=== PATIENT | female | born 1980 | race Caucasian/White ===

== ENCOUNTER 2016-07-20 20:13 | Emergency (ER) | payer OTHER ==
[2016-07-20] MEDS ORDERED: AUGMENTIN 875 MG TAB As Ordered ONE (21:28)
[2016-07-20] MEDS ORDERED: predniSONE 20 MG TAB As Ordered ONE (21:28)
[2016-07-20] MEDS ORDERED: IBUPROFEN 800 MG TAB As Ordered ONE (21:29)
--- NOTE | 2016-07-20 21:45 | EDDOCDS ---
Physician Documentation [facility] Name: Sara Allan Age: 35 yrs Sex: Female : 1980 Arrival Date: 07/20/2016 Time: 20:13 Bed TR7 Private MD: NO PRIMARY PHYSICIAN, . Disposition: 07/20/16 21:36 Discharged to Home/Self Care. Impression: Acute sinusitis, Acute tonsillitis, Cough. - Condition is Stable. - Discharge Instructions: Tonsillitis, Yady-ha-Vqim, Sinusitis, Jwgc-ft-Iqmi, Cough, Adult, Tntj-yn-Mnpm. - Prescriptions for Augmentin 875- 125 mg Oral Tablet - take 1 tablet by ORAL route every 12 hours for 10 days; 20 tablet. Prednisone 20 mg Oral Tablet - take 3 tablet by ORAL route once daily for 5 days; 15 tablet. Claritin 10 mg Oral Tablet - take 1 tablet by ORAL route once daily As needed; 30 tablet. Mucinex 600 mg - take 1 tablet by ORAL route 2 times per day; 30 tablet. Ibuprofen 800 mg Oral Tablet - take 1 tablet by ORAL route every 8 hours As needed take with food; 30 tablet. - Work Release Form - 3 day, Medication Reconciliation, Local Pharmacy Hours, Referral List Call for Appointment form. - [facility] ; When: 1 - 2 days; Reason: Recheck today's complaints, Continuance of care. Follow up: Emergency Department; Reason: Worsening of conditions. - Problem is new. - Symptoms have improved. Historical: - Allergies: no known allergies; - Home Meds: 1. cold and flu medication OTC as needed (Last dose: 07/20/2016 15:00) - PMHx: none; - PSHx: Cholecystectomy; hernia repair; - Social history: Smoking status: Patient uses tobacco products, heavy tobacco smoker. Patient/guardian denies using alcohol, street drugs, No barriers to communication noted, The patient speaks fluent Malay, Speaks appropriately for age. - Family history: Not pertinent. - : The pt / caregiver states he / she is not on anticoagulants. Home medication list is obtained from the patient. - Exposure Risk Screening:: None identified. 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 11 in. (180.34 cm); Pain 6/10; 21:33 BP 139 / 93; Pulse 98; Resp 18; Temp 98.7(O); Pulse Ox 98% on R/A; Pain 6/10; ck1 20:14 Body Mass Index 29.01 (94.35 kg, 180.34 cm) dem1 MDM: 21:26 Amoxicillin-Clavulanate 875 mg 1 tabs PO once ordered. ef1 21:27 predniSONE 60 mg PO once; administer with food or milk ordered. ef1 21:27 Ibuprofen 800 mg PO once ordered. ef1 Administered Medications: 21:31 Drug: Amoxicillin-Clavulanate 1 tabs [amoxicillin 875 mg-potassium clavulanate 125 mg ck1 tablet (1 tabs)] Route: PO; 21:31 Drug: predniSONE 60 mg [prednisone 20 mg tablet (3 tabs)] Route: PO; ck1 21:31 Drug: Ibuprofen 800 mg [ibuprofen 800 mg tablet (1 tabs)] Route: PO; ck1 Signatures: Anjelica Ambrosio,RN RN ck1 Faiza Betancur PA-C PA-C ef1 Bonny Retana RN RN ttb MTDD
--- NOTE | 2016-07-20 21:45 | EDDOCDS ---
Nurse's Notes [facility] Name: Sara Allan Age: 35 yrs Sex: Female : 1980 Arrival Date: 07/20/2016 Time: 20:13 Bed TR7 Private MD: NO PRIMARY PHYSICIAN, . Diagnosis: Acute sinusitis;Acute tonsillitis;Cough Presentation: 07/20 20:21 Presenting complaint: Patient states: chest congestions/nasal congestion x2 days. Adult ttb Sepsis Screening: The patient does not have new or worsening altered mentation. Patient's respiratory rate is less than 22. Systolic blood pressure is greater than 100. Patient has a qSOFA score of 0- Negative Sepsis Screen. Suicide/Homicide risk assessment- the patient denies having any suicidal and/or homicidal ideations and does not present with any other emotional, behavioral or mental health complaints. Status: Patient is not a guest service aide or dependent. Transition of care: patient was not received from another setting of care. 20:21 Acuity: ANTONI Level 5 ttb 20:21 Method Of Arrival: Walkin/Carried/Asstd ttb Triage Assessment: 20:22 General: Appears in no apparent distress, well nourished, well groomed, Behavior is ttb appropriate for age, cooperative, pleasant. Pain: Location: throat. HIV screening NA for this visit Offered previously. Neurological: Level of Consciousness is awake, alert. EENT: Reports nasal congestion nasal discharge. Cardiovascular: Chest pain is denied. Respiratory: Airway is patent Respiratory effort is even, unlabored, Reports cough that is productive, the patient has mild shortness of breath Denies shortness of breath. GI: Denies nausea, vomiting. :. Derm: Skin is normal. 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 cold and flu medication OTC as needed (Last dose: 07/20/2016 15:00) - PMHx: none; - PSHx: Cholecystectomy; hernia repair; - Social history: Smoking status: Patient uses tobacco products, heavy tobacco smoker. Patient/guardian denies using alcohol, street drugs, No barriers to communication noted, The patient speaks fluent Hungarian, Speaks appropriately for age. - Family history: Not pertinent. - : The pt / caregiver states he / she is not on anticoagulants. Home medication list is obtained from the patient. - Exposure Risk Screening:: None identified. Screenin:31 Screening information is obtained from the patient. Fall risk: No risks identified. ck1 Assistance ADL's: requires no assistance with activities of daily living. Abuse/DV Screen: The patient / caregiver reports he/she is: not in a situation that causes fear, pain or injury. Nutritional screening: No deficits noted. Advance Directives: Currently, there is no health care proxy. home support is adequate. Assessment: 21:31 General: Appears in no apparent distress, comfortable, Behavior is appropriate for age, ck1 cooperative. Pain: Location: chest Pain At worst was 6 out of 10 on a pain scale. Aggravated by cough. Cardiovascular: No deficits noted. Respiratory: Respiratory effort is unlabored, Respiratory pattern is regular, symmetrical, Breath sounds are clear bilaterally. Reports cough that is productive. Derm: Skin is pink, warm & dry. Vital Signs: 20:14 BP 142 / 72; Pulse 114; Resp 18; Temp 96.9(O); Pulse Ox 98% on R/A; Weight 94.35 kg [facility] (R); Height 5 ft. 11 in. (180.34 cm); Pain 6/10; 21:33 BP 139 / 93; Pulse 98; Resp 18; Temp 98.7(O); Pulse Ox 98% on R/A; Pain 6/10; ck1 20:14 Body Mass Index 29.01 (94.35 kg, 180.34 cm) [facility] Vitals: 20:14 Log In Time: July 20, 2016 at 20:10. [facility] ED Course: 20:14 Patient visited by Waqas Hernandez. dem1 20:14 NO PRIMARY PHYSICIAN, . is Private Physician. dem1 20:14 Patient moved to Waiting dem1 20:14 Patient moved to Pre RCE dem1 20:21 Triage Initiated ttb 20:52 Patient moved to Triage 2 jmb 21:00 Patient visited by Anjelica Ambrosio,YURI. ck1 21:14 Faiza Betancur PA-C is PHCP. ef1 21:14 Carlos Salazar DO is Attending Physician. ef1 21:18 Patient visited by Faiza Betancur PA-C. ef1 21:31 Patient visited by Rossy-Kavon,Anjelica,RN. ck1 21:31 No IV's were initiated during this patient's visit. No procedures done that require ck1 assistance. 21:32 The patient / caregiver is instructed regarding the plan of care and ED course. ck1 21:36 [facility] is Referral Physician. ef1 21:43 Patient moved to [address] Administered Medications: 21:31 Drug: Amoxicillin-Clavulanate 1 tabs [amoxicillin 875 mg-potassium clavulanate 125 mg ck1 tablet (1 tabs)] Route: PO; 21:31 Drug: predniSONE 60 mg [prednisone 20 mg tablet (3 tabs)] Route: PO; ck1 21:31 Drug: Ibuprofen 800 mg [ibuprofen 800 mg tablet (1 tabs)] Route: PO; ck1 Order Results: There are currently no results for this order. Outcome: 21:36 Discharge ordered by Provider. ef1 21:37 Discharge Assessment: Patient awake, alert and oriented x 3. No cognitive and/or ck1 functional deficits noted. Patient verbalized understanding of disposition instructions. patient administered narcotics - no. The following High Risk Discharge criteria are identified: None. Discharged to home ambulatory. Condition: stable. Discharge instructions given to patient, Instructed on discharge instructions, follow up and referral plans. medication usage, Demonstrated understanding of instructions, medications, Pt was receptive of discharge instructions/ teaching. No special radiology studies were completed. Property :Personal belongings accompany Pt. 21:44 Prescriptions given X 5 Work note provided to patient. ck1 21:44 Patient left the ED. ck1 Signatures: Anjelica Ambrosio,RN RN ck1 Faiza Betancur PA-C PA-C ef1 Waqas Hernandez [facility] Bonny Retana RN RN ttb Calixto Barker RN RN sarab MTDD
--- NOTE | 2016-07-22 22:46 | EDDOCDS ---
Nurse's Notes [facility] Name: Sara Allan Age: 35 yrs Sex: Female : 1980 Arrival Date: 07/20/2016 Time: 20:13 Bed TR7 Private MD: NO PRIMARY PHYSICIAN, . Diagnosis: Acute sinusitis;Acute tonsillitis;Cough Presentation: 07/20 20:21 Presenting complaint: Patient states: chest congestions/nasal congestion x2 days. Adult ttb Sepsis Screening: The patient does not have new or worsening altered mentation. Patient's respiratory rate is less than 22. Systolic blood pressure is greater than 100. Patient has a qSOFA score of 0- Negative Sepsis Screen. Suicide/Homicide risk assessment- the patient denies having any suicidal and/or homicidal ideations and does not present with any other emotional, behavioral or mental health complaints. 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 Transition of care: patient was not received from another setting of care. 20:21 Acuity: ANTONI Level 5 ttb 20:21 Method Of Arrival: Walkin/Carried/Asstd ttb Triage Assessment: 20:22 General: Appears in no apparent distress, well nourished, well groomed, Behavior is ttb appropriate for age, cooperative, pleasant. Pain: Location: throat. HIV screening NA for this visit Offered previously. Neurological: Level of Consciousness is awake, alert. EENT: Reports nasal congestion nasal discharge. Cardiovascular: Chest pain is denied. Respiratory: Airway is patent Respiratory effort is even, unlabored, Reports cough that is productive, the patient has mild shortness of breath Denies shortness of breath. GI: Denies nausea, vomiting. :. Derm: Skin is normal. 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 cold and flu medication OTC as needed (Last dose: 07/20/2016 15:00) - PMHx: none; - PSHx: Cholecystectomy; hernia repair; - Social history: Smoking status: Patient uses tobacco products, heavy tobacco smoker. Patient/guardian denies using alcohol, street drugs, No barriers to communication noted, The patient speaks fluent Tajik, Speaks appropriately for age. - Family history: Not pertinent. - : The pt / caregiver states he / she is not on anticoagulants. Home medication list is obtained from the patient. - Exposure Risk Screening:: None identified. Screenin:31 Screening information is obtained from the patient. Fall risk: No risks identified. ck1 Assistance ADL's: requires no assistance with activities of daily living. Abuse/DV Screen: The patient / caregiver reports he/she is: not in a situation that causes fear, pain or injury. Nutritional screening: No deficits noted. Advance Directives: Currently, there is no health care proxy. home support is adequate. Assessment: 21:31 General: Appears in no apparent distress, comfortable, Behavior is appropriate for age, ck1 cooperative. Pain: Location: chest Pain At worst was 6 out of 10 on a pain scale. Aggravated by cough. Cardiovascular: No deficits noted. Respiratory: Respiratory effort is unlabored, Respiratory pattern is regular, symmetrical, Breath sounds are clear bilaterally. Reports cough that is productive. Derm: Skin is pink, warm & dry. Vital Signs: 20:14 BP 142 / 72; Pulse 114; Resp 18; Temp 96.9(O); Pulse Ox 98% on R/A; Weight 94.35 kg [facility] (R); Height 5 ft. 11 in. (180.34 cm); Pain 6/10; 21:33 BP 139 / 93; Pulse 98; Resp 18; Temp 98.7(O); Pulse Ox 98% on R/A; Pain 6/10; ck1 20:14 Body Mass Index 29.01 (94.35 kg, 180.34 cm) [facility] Vitals: 20:14 Log In Time: July 20, 2016 at 20:10. [facility] ED Course: 20:14 Patient visited by Waqas Hernandez. dem1 20:14 NO PRIMARY PHYSICIAN, . is Private Physician. dem1 20:14 Patient moved to Waiting dem1 20:14 Patient moved to Pre RCE dem1 20:21 Triage Initiated ttb 20:52 Patient moved to Triage 2 jmb 21:00 Patient visited by Anjelica Ambrosio,YURI. ck1 21:14 Faiza Betancur PA-C is PHCP. ef1 21:14 Carlos Salazar DO is Attending Physician. ef1 21:18 Patient visited by Faiza Betancur PA-C. ef1 21:31 Patient visited by Rossy-Kavon,Anjelica,RN. ck1 21:31 No IV's were initiated during this patient's visit. No procedures done that require ck1 assistance. 21:32 The patient / caregiver is instructed regarding the plan of care and ED course. ck1 21:36 [facility] is Referral Physician. ef1 21:43 Patient moved to [address] 21:47 [facility] Payment Agreement was scanned into [employer] and attached to record. zo 07/21 08:04 T-Sheet-- Draft Copy was scanned into [employer] and attached to record. gb Administered Medications: 07/20 21:31 Drug: Amoxicillin-Clavulanate 1 tabs [amoxicillin 875 mg-potassium clavulanate 125 mg ck1 tablet (1 tabs)] Route: PO; 21:31 Drug: predniSONE 60 mg [prednisone 20 mg tablet (3 tabs)] Route: PO; ck1 21:31 Drug: Ibuprofen 800 mg [ibuprofen 800 mg tablet (1 tabs)] Route: PO; ck1 Order Results: There are currently no results for this order. Outcome: 21:36 Discharge ordered by Provider. ef1 21:37 Discharge Assessment: Patient awake, alert and oriented x 3. No cognitive and/or ck1 functional deficits noted. Patient verbalized understanding of disposition instructions. patient administered narcotics - no. The following High Risk Discharge criteria are identified: None. Discharged to home ambulatory. Condition: stable. Discharge instructions given to patient, Instructed on discharge instructions, follow up and referral plans. medication usage, Demonstrated understanding of instructions, medications, Pt was receptive of discharge instructions/ teaching. No special radiology studies were completed. Property :Personal belongings accompany Pt. 21:44 Prescriptions given X 5 Work note provided to patient. ck1 21:44 Patient left the ED. ck1 Signatures: Annette Graff, Reg Reg Anjelica Ambrosio,RN RN ck1 Kenyatta Hagen Erica PA-C PA-C ef1 Waqas Hernandez [facility] Bonny Retana, YURI RN ttb Calixto Barker RN RN jmb Chart Complete MTDD
--- NOTE | 2016-07-22 22:46 | EDDOCDS ---
Physician Documentation [facility] Name: Sara Allan Age: 35 yrs Sex: Female : 1980 Arrival Date: 07/20/2016 Time: 20:13 Bed TR7 Private MD: NO PRIMARY PHYSICIAN, . Disposition: 07/20/16 21:36 Discharged to Home/Self Care. Impression: Acute sinusitis, Acute tonsillitis, Cough. - Condition is Stable. - Discharge Instructions: Tonsillitis, Mqwv-xp-Rshv, Sinusitis, Dwfv-xk-Rswl, Cough, Adult, Fmqz-uv-Yefh. - Prescriptions for Augmentin 875- 125 mg Oral Tablet - take 1 tablet by ORAL route every 12 hours for 10 days; 20 tablet. Prednisone 20 mg Oral Tablet - take 3 tablet by ORAL route once daily for 5 days; 15 tablet. Claritin 10 mg Oral Tablet - take 1 tablet by ORAL route once daily As needed; 30 tablet. Mucinex 600 mg - take 1 tablet by ORAL route 2 times per day; 30 tablet. Ibuprofen 800 mg Oral Tablet - take 1 tablet by ORAL route every 8 hours As needed take with food; 30 tablet. - Work Release Form - 3 day, Medication Reconciliation, Local Pharmacy Hours, Referral List Call for Appointment form. - [facility] ; When: 1 - 2 days; Reason: Recheck today's complaints, Continuance of care. Follow up: Emergency Department; Reason: Worsening of conditions. - Problem is new. - Symptoms have improved. Historical: - Allergies: no known allergies; - Home Meds: 1. cold and flu medication OTC as needed (Last dose: 07/20/2016 15:00) - PMHx: none; - PSHx: Cholecystectomy; hernia repair; - Social history: Smoking status: Patient uses tobacco products, heavy tobacco smoker. Patient/guardian denies using alcohol, street drugs, No barriers to communication noted, The patient speaks fluent Faroese, Speaks appropriately for age. - Family history: Not pertinent. - : The pt / caregiver states he / she is not on anticoagulants. Home medication list is obtained from the patient. - Exposure Risk Screening:: None identified. 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 11 in. (180.34 cm); Pain 6/10; 21:33 BP 139 / 93; Pulse 98; Resp 18; Temp 98.7(O); Pulse Ox 98% on R/A; Pain 6/10; ck1 20:14 Body Mass Index 29.01 (94.35 kg, 180.34 cm) dem1 MDM: 21:26 Amoxicillin-Clavulanate 875 mg 1 tabs PO once ordered. ef1 21:27 predniSONE 60 mg PO once; administer with food or milk ordered. ef1 21:27 Ibuprofen 800 mg PO once ordered. ef1 21:47 Financial registration complete. zo 21:47 [facility] Payment Agreement was scanned into [employer] and attached to record. zo 07/21 08:04 T-Sheet-- Draft Copy was scanned into [employer] and attached to record. gb Administered Medications: 07/20 21:31 Drug: Amoxicillin-Clavulanate 1 tabs [amoxicillin 875 mg-potassium clavulanate 125 mg ck1 tablet (1 tabs)] Route: PO; 21:31 Drug: predniSONE 60 mg [prednisone 20 mg tablet (3 tabs)] Route: PO; ck1 21:31 Drug: Ibuprofen 800 mg [ibuprofen 800 mg tablet (1 tabs)] Route: PO; ck1 Signatures: Annette Graff, Reg Reg gb Anjelica Ambrosio RN RN ck1 Kenyatta Hagen Erica, PA-C PA-C ef1 Bonny Retana RN RN ttb The chart was reviewed and I authenticate all verbal orders and agree with the evaluation and treatment provided.Attachments: 21:47 [facility] Payment Agreement zo 07/21 08:04 T-Sheet-- Draft Copy gb Chart Complete MTDD
--- NOTE | 2016-07-22 22:46 | EDDOCDS ---
Physician Documentation [facility] Name: Sara Allan Age: 35 yrs Sex: Female : 1980 Arrival Date: 07/20/2016 Time: 20:13 Bed TR7 Private MD: NO PRIMARY PHYSICIAN, . Disposition: 07/20/16 21:36 Discharged to Home/Self Care. Impression: Acute sinusitis, Acute tonsillitis, Cough. - Condition is Stable. - Discharge Instructions: Tonsillitis, Lsve-hj-Pgqy, Sinusitis, Kjcq-hv-Vvos, Cough, Adult, Geug-no-Obzt. - Prescriptions for Augmentin 875- 125 mg Oral Tablet - take 1 tablet by ORAL route every 12 hours for 10 days; 20 tablet. Prednisone 20 mg Oral Tablet - take 3 tablet by ORAL route once daily for 5 days; 15 tablet. Claritin 10 mg Oral Tablet - take 1 tablet by ORAL route once daily As needed; 30 tablet. Mucinex 600 mg - take 1 tablet by ORAL route 2 times per day; 30 tablet. Ibuprofen 800 mg Oral Tablet - take 1 tablet by ORAL route every 8 hours As needed take with food; 30 tablet. - Work Release Form - 3 day, Medication Reconciliation, Local Pharmacy Hours, Referral List Call for Appointment form. - [facility] ; When: 1 - 2 days; Reason: Recheck today's complaints, Continuance of care. Follow up: Emergency Department; Reason: Worsening of conditions. - Problem is new. - Symptoms have improved. Historical: - Allergies: no known allergies; - Home Meds: 1. cold and flu medication OTC as needed (Last dose: 07/20/2016 15:00) - PMHx: none; - PSHx: Cholecystectomy; hernia repair; - Social history: Smoking status: Patient uses tobacco products, heavy tobacco smoker. Patient/guardian denies using alcohol, street drugs, No barriers to communication noted, The patient speaks fluent Nepali, Speaks appropriately for age. - Family history: Not pertinent. - : The pt / caregiver states he / she is not on anticoagulants. Home medication list is obtained from the patient. - Exposure Risk Screening:: None identified. 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 11 in. (180.34 cm); Pain 6/10; 21:33 BP 139 / 93; Pulse 98; Resp 18; Temp 98.7(O); Pulse Ox 98% on R/A; Pain 6/10; ck1 20:14 Body Mass Index 29.01 (94.35 kg, 180.34 cm) dem1 MDM: 21:26 Amoxicillin-Clavulanate 875 mg 1 tabs PO once ordered. ef1 21:27 predniSONE 60 mg PO once; administer with food or milk ordered. ef1 21:27 Ibuprofen 800 mg PO once ordered. ef1 21:47 Financial registration complete. zo 21:47 [facility] Payment Agreement was scanned into [employer] and attached to record. zo 07/21 08:04 T-Sheet-- Draft Copy was scanned into [employer] and attached to record. gb Administered Medications: 07/20 21:31 Drug: Amoxicillin-Clavulanate 1 tabs [amoxicillin 875 mg-potassium clavulanate 125 mg ck1 tablet (1 tabs)] Route: PO; 21:31 Drug: predniSONE 60 mg [prednisone 20 mg tablet (3 tabs)] Route: PO; ck1 21:31 Drug: Ibuprofen 800 mg [ibuprofen 800 mg tablet (1 tabs)] Route: PO; ck1 Signatures: Annette Graff, Reg Reg gb Anjelica Ambrosio RN RN ck1 Kenyatta Hagen Erica, PA-C PA-C ef1 Bonny Retana RN RN ttb The chart was reviewed and I authenticate all verbal orders and agree with the evaluation and treatment provided.Attachments: 21:47 [facility] Payment Agreement zo 07/21 08:04 T-Sheet-- Draft Copy gb Chart Complete MTDD
== END 2016-07-20 21:44 | disposition home or self-care (01) ==
LOC: M ED 20:13
DX: J01.90 Acute sinusitis, unspecified (principal); J03.90 Acute tonsillitis, unspecified; R05 Cough; G50.1 Atypical facial pain; Z90.49 Acquired absence of other specified parts of digestive tract; Z72.0 Tobacco use

== ENCOUNTER 2016-12-05 11:16 | Emergency (ER) | payer OTHER ==
[~2016-12-05] VITALS: Ht 154.9 cm; Wt 91.2 kg
[2016-12-05 11:16] VITALS: BP 138/70
[2016-12-05] MEDS ORDERED: PEPC1TAB4 PO (12:42)
[2016-12-05] MEDS ORDERED: PRED20TA PO (12:42)
--- NOTE | 2016-12-06 14:20 | ECGEPIP ---
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
== END 2016-12-05 13:05 | disposition home or self-care (01) ==
LOC: M ED 12:27
DX: L50.9 Urticaria, unspecified (principal); F17.200 Nicotine dependence, unspecified, uncomplicated; Z79.899 Other long term (current) drug therapy

== ENCOUNTER 2017-01-01 10:55 | Emergency (ER) | payer OTHER ==
[~2017-01-01] VITALS: Ht 154.9 cm; Wt 97.7 kg
[~2017-01-01 10:55] MED LIST: PEPC1TAB4 PO; PRED20TA PO
[2017-01-01 10:56] VITALS: BP 106/80
[2017-01-01] MEDS ORDERED: ZYRT10CA PO (13:59)
[2017-01-01] MEDS ORDERED: FLON1SPR (13:59)
[2017-01-01] MEDS ORDERED: CHLO1.4S2 MT (13:59)
[2017-01-01] MEDS ORDERED: CETIRIZINE (ZyrTEC) 10 MG TAB PO ONE (14:15)
== END 2017-01-01 14:11 | disposition home or self-care (01) ==
LOC: M ED 11:43
DX: J02.9 Acute pharyngitis, unspecified (principal); J30.2 Other seasonal allergic rhinitis; F17.200 Nicotine dependence, unspecified, uncomplicated

== ENCOUNTER 2017-07-15 17:31 | Emergency (ER) | payer OTHER | END 2017-07-15 21:22 | disposition left against medical advice (07) | LOC: M ED 17:31 | DX: R05 Cough (principal); Z53.21 Procedure and treatment not carried out due to patient leaving prior to being seen by health care provider ==

== ENCOUNTER 2018-02-13 10:20 | Emergency (ER) | payer OTHER | END 2018-02-13 11:19 | disposition home or self-care (01) | LOC: M ED 10:20 | DX: K42.9 Umbilical hernia without obstruction or gangrene (principal); F17.210 Nicotine dependence, cigarettes, uncomplicated | CPT/HCPCS: 99282 ==

== ENCOUNTER → 2018-11-20 | Outpatient (CLI) | payer BC ==
[~2018-11-20] MED LIST changes: +CHLO1.4S2 MT; +FLON1SPR; -PEPC1TAB4 PO; +PEPC1TAB5 PO; +PRED10TA2 PO; +PROAAER10 INH; +ZITHTAB PO; +ZYRT10CA PO
[2018-11-20 07:14] LABS: BASO # 0.1 10^3/uL (0.0-0.2); BASO % 0.8 % (0.0-1.0); EOS # 0.4 10^3/uL (0.0-0.50); EOS % 4.4 % (0.0-3.0); HEMATOCRIT 41.1 % (36.0-47.0); HEMOGLOBIN 13.5 g/dl (12.0-15.5); LYMPH # 2.5 10^3/uL (1.5-4.5); LYMPH % 28.8 % (24.0-44.0); MEAN CORPUSCULAR HEMOGLOBIN 31.3 pg (27.0-33.0); MEAN CORPUSCULAR HGB CONC 32.8 g/dl (32.0-36.5); MEAN CORPUSCULAR VOLUME 95.1 fl (80.0-96.0); MONO # 0.6 10^3/uL (0.0-0.8); MONO % 6.7 % (0.0-5.0); NEUTROPHILS # 5.2 10^3/uL (1.8-7.7); PLATELET COUNT, AUTOMATED 333 10^3/uL (150-450); RED BLOOD COUNT 4.32 10^6/uL (4.00-5.40); WHITE BLOOD COUNT 8.8 10^3/uL (4.0-10.0)
--- NOTE | 2018-11-20 07:30 | REP ---
Clinical: Cervicalgia Technique: AP, lateral views of the cervical spine. Findings: Alignment and lordosis maintained. Vertebral bodies and disc spaces are within normal limits. Surrounding soft tissues are unremarkable. Impression: Normal age-appropriate cervical spine radiographs. If the patient remains symptomatic consider MRI for further investigation. Electronically Signed by Dereck Natarajan MD 11/20/2018 07:21 A
[2018-11-20 07:49] LABS: ALBUMIN 3.7 GM/DL (3.2-5.2); ALT/SGPT 28 U/L (12-78); BILIRUBIN,TOTAL 0.3 MG/DL (0.2-1.0); BLOOD UREA NITROGEN 9 MG/DL (7-18); CALCIUM LEVEL 8.6 MG/DL (8.5-10.1); CARBON DIOXIDE LEVEL 26 MEQ/L (21-32); CHLORIDE LEVEL 106 MEQ/L (98-107); CHOLESTEROL LEVEL 148 MG/DL (<200); CHOLESTEROL RISK RATIO 3.441 (<5); CREATININE FOR GFR 0.78 MG/DL (0.55-1.30); GLOMERULAR FILTRATION RATE > 60.0 (>60); GLUCOSE, FASTING 105 MG/DL (70-100); HDL CHOLESTEROL 43 MG/DL (>40); LDL CHOLESTEROL 59 MG/DL (<100); NON-HDL-C 105 MG/DL; POTASSIUM SERUM 4.1 MEQ/L (3.5-5.1); SODIUM LEVEL 140 MEQ/L (136-145); TOTAL PROTEIN 6.7 GM/DL (6.4-8.2); TRIGLYCERIDES LEVEL 228 MG/DL (<150)
== END ==
LOC: M LAB 06:18
PROVIDERS: ATTEND Physician Assistant
DX: R53.83 Other fatigue (principal); M54.2 Cervicalgia

== ENCOUNTER → 2020-08-24 | Outpatient (CLI) | payer BC ==
[2020-08-24 12:12] LABS: BLOOD UREA NITROGEN 9 MG/DL (7-18); CARBON DIOXIDE LEVEL 27 MEQ/L (21-32); CHLORIDE LEVEL 105 MEQ/L (98-107); CREATININE FOR GFR 0.69 MG/DL (0.55-1.30); GLOMERULAR FILTRATION RATE > 60.0 (>60); GLUCOSE, FASTING 115 MG/DL (70-100); POTASSIUM SERUM 4.3 MEQ/L (3.5-5.1); SODIUM LEVEL 139 MEQ/L (136-145)
[2020-08-24 12:13] LABS: ALBUMIN 3.5 GM/DL (3.2-5.2); ALT/SGPT 28 U/L (12-78); BILIRUBIN,TOTAL 0.2 MG/DL (0.2-1.0); CHOLESTEROL LEVEL 162 MG/DL (<200); CHOLESTEROL RISK RATIO 3.306 (<5); FREE T4 0.79 NG/DL (0.76-1.46); HDL CHOLESTEROL 49 MG/DL (>40); LDL CHOLESTEROL 71 MG/DL (<100); NON-HDL-C 113 MG/DL; TRIGLYCERIDES LEVEL 211 MG/DL (<150)
[2020-08-25 09:07] LABS: MUMPS VIRUS IgG ANTIBODY <9.0 AU/mL (Immune >10.9); RUBEOLA IgG ANTIBODY <13.5 AU/mL (Immune >16.4)
== END ==
LOC: M LAB 10:51
PROVIDERS: ATTEND Nurse Practitioner Family
DX: Z00.00 Encounter for general adult medical examination without abnormal findings (principal)

== ENCOUNTER → 2022-11-06 | Outpatient (CLI) | payer BC ==
[~2022-11-06] MED LIST changes: -CHLO1.4S2 MT; +CHLO1.4S7 MT
== END ==
LOC: M RAD 09:54
PROVIDERS: ATTEND Surgery
DX: K43.6 Other and unspecified ventral hernia with obstruction, without gangrene (principal)

== ENCOUNTER → 2023-08-16 | Outpatient (CLI) | payer BC ==
[2023-08-16 08:36] LABS: BASO % 0.5 % (0.0-1.0); EOS # 0.2 10^3/uL (0.0-0.5); EOS % 3.2 % (0.0-3.0); HEMATOCRIT 37.8 % (36.0-47.0); HEMOGLOBIN 12.5 g/dl (12.0-15.5); LYMPH % 26.5 % (24.0-44.0); MEAN CORPUSCULAR HEMOGLOBIN 30.8 pg (27.0-33.0); MEAN CORPUSCULAR HGB CONC 33.1 g/dl (32.0-36.5); MEAN CORPUSCULAR VOLUME 93.1 fl (80.0-96.0); MONO # 0.4 10^3/uL (0.0-0.8); MONO % 5.1 % (2.0-8.0); NEUTROPHILS # 4.9 10^3/uL (1.5-8.5); NEUTROPHILS % 64.3 % (36.0-66.0); PLATELET COUNT, AUTOMATED 358 10^3/uL (150-450); RED BLOOD COUNT 4.06 10^6/uL (4.00-5.40); WHITE BLOOD COUNT 7.6 10^3/uL (4.0-10.0)
[2023-08-16 09:04] LABS: ALBUMIN 3.4 G/DL (3.2-5.2); ALKALINE PHOSPHATASE 71 U/L (46-116); ALT/SGPT 23 U/L (7.0-40); AST/SGOT 12 U/L (<34); BILIRUBIN,TOTAL 0.3 MG/DL (0.3-1.2); BLOOD UREA NITROGEN 10 MG/DL (9-23); CALCIUM LEVEL 8.7 MG/DL (8.5-10.1); CARBON DIOXIDE LEVEL 27 MMOL/L (20-31); CHLORIDE LEVEL 106 MMOL/L (98-107); CHOLESTEROL LEVEL 151 MG/DL (<200); CHOLESTEROL RISK RATIO 2.97 (<5); CREATININE FOR GFR 0.59 MG/DL (0.55-1.30); GLOMERULAR FILTRATION RATE > 60.0 (>58); GLUCOSE, FASTING 104 MG/DL (60-100); HDL CHOLESTEROL 50.7 MG/DL (>40); LDL CHOLESTEROL 80.5 MG/DL (<100); NON-HDL-C 100.3 MG/DL; POTASSIUM SERUM 4.1 MMOL/L (3.5-5.1); SODIUM LEVEL 139 MMOL/L (136-145); TOTAL PROTEIN 7.1 G/DL (5.7-8.2); TRIGLYCERIDES LEVEL 99 MG/DL (<150)
[2023-08-16 09:28] LABS: HEMOGLOBIN A1c 5.1 % (4.0-6.0)
== END ==
LOC: M LAB 08:05
PROVIDERS: ATTEND Registered Nurse
DX: E66.9 Obesity, unspecified (principal)

== ENCOUNTER 2023-10-01 10:38 | Day surgery (SDC) | payer BC ==
[~2023-10-01] VITALS: Ht 154.9 cm; Wt 104.5 kg
[~2023-10-01 10:38] MED LIST changes: +APPLTAB2 PO; +CETI-24 PO; +MULTCHW14 PO; +PHEN30CA21 PO
[2023-10-01] MEDS ORDERED: propofoL 200 MG/20 ML VIAL As Ordered ONE (11:22)
[2023-10-01] MEDS ORDERED: LIDOCAINE 2% 100MG/5ML SDV (FOR ANES.) As Ordered ONE (11:22)
[2023-10-01] MEDS ORDERED: ROCURONIUM BROMIDE 50MG/5ML VIAL As Ordered ONE (11:22)
[2023-10-01] MEDS ORDERED: MIDAZOLAM INJ 2MG/2ML VIAL As Ordered ONE (11:22)
[2023-10-01] MEDS ORDERED: ONDANSETRON 4MG 2ML VIAL As Ordered ONE (11:22)
[2023-10-01] MEDS ORDERED: fentaNYL 100 MCG/2 ML INJECTION As Ordered ONE (11:23)
[2023-10-01] MEDS: CelecoXIB 400 MG CAP PO ONE (11:26)
[2023-10-01] MEDS: ceFAZolin SOD 2 GM in IV 1 EA IV ONE (13:20)
[2023-10-01] MEDS ORDERED: ACETAMINOPHEN 1000MG 100ML IV BAG As Ordered ONE (14:02)
[2023-10-01] MEDS ORDERED: dexmedeTOMIDine (4MCG/ML)200MCG/50ML BTL (PRECEDEX) As Ordered ONE (14:03)
[2023-10-01] MEDS ORDERED: LABETALOL 100MG/20ML VIAL As Ordered ONE (14:03)
[2023-10-01] MEDS ORDERED: SUGAMMADEX SODIUM 500 MG/5 ML VIAL (BRIDION) As Ordered ONE (14:03)
[2023-10-01] MEDS ORDERED: KETOROLAC 60MG 2ML VIAL As Ordered ONE (16:18)
[2023-10-01] MEDS: LIDOCAINE 1% SDV 30ML VIAL As Ordered ONE (16:20)
[2023-10-01] MEDS ORDERED: ONDANSETRON 4MG 2ML VIAL IV PRN (16:35)
[2023-10-01] MEDS ORDERED: fentaNYL 100 MCG/2 ML INJECTION IV PRN (16:35)
[2023-10-01] MEDS ORDERED: LR 1,000 ML IV SCH (16:35)
[2023-10-01] MEDS: HYDROMORPHONE HCL 0.5 MG/ 0.5 ML SYRINGE IV PRN (16:44)
[2023-10-01] MEDS: oxyCODONE 5MG TAB PO PRN (16:45)
[2023-10-01] MEDS ORDERED: NORCO, ANEXSIA 5/325MG TABLET (HYDROcodone/ACETAMINOPHEN) PO PRN ×2 (17:20)
[2023-10-01 17:40] VITALS: BP 118/68; TEMP 96.8; O2SAT 94
[2023-10-01] MEDS ORDERED: KETOROLAC 30 MG/ML 1ML VIAL IV SCH (22:00)
== END 2023-10-01 18:35 | disposition home or self-care (01) ==
LOC: M SDC 10:38
PROVIDERS: ATTEND Surgery
DX: K43.6 Other and unspecified ventral hernia with obstruction, without gangrene (principal); E66.01 Morbid (severe) obesity due to excess calories; Z79.899 Other long term (current) drug therapy; K21.9 Gastro-esophageal reflux disease without esophagitis; Z87.891 Personal history of nicotine dependence
CPT/HCPCS: 49616; 81025; C1765; C1781; C9290; J0131; J0665; J0690; J1100; J1170; J1885; J1920; J2250; J2405; J3010; S2900

== ENCOUNTER → 2023-11-15 | Outpatient (REF) | payer BC | LOC: M SFHCWAGY 14:54 | PROVIDERS: ATTEND Nurse Practitioner Family | DX: N73.9 Female pelvic inflammatory disease, unspecified (principal); Z12.4 Encounter for screening for malignant neoplasm of cervix; Z11.51 Encounter for screening for human papillomavirus (HPV) ==

== ENCOUNTER → 2023-12-13 | Outpatient (CLI) | payer BC | LOC: M PLALAB 12:25 | PROVIDERS: ATTEND Nurse Practitioner Family | DX: Z12.9 Encounter for screening for malignant neoplasm, site unspecified (principal); Z80.3 Family history of malignant neoplasm of breast; Z80.0 Family history of malignant neoplasm of digestive organs ==

== ENCOUNTER 2024-01-08 09:27 | Day surgery (SDC) | payer BC ==
[~2024-01-08] VITALS: Ht 154.9 cm; Wt 105.9 kg
[~2024-01-08 09:27] MED LIST changes: +VITA100093 PO
[2024-01-08] MEDS: NS 1,000 ML IV ONE (10:01)
[2024-01-08] MEDS ORDERED: propofoL 200 MG/20 ML VIAL As Ordered ONE (11:53)
[2024-01-08] MEDS ORDERED: LIDOCAINE 2% 100MG/5ML SDV (FOR ANES.) As Ordered ONE (11:56)
[2024-01-08 12:20] VITALS: TEMP 97.7
[2024-01-08 12:27] VITALS: BP 127/56; O2SAT 96
== END 2024-01-08 12:43 | disposition home or self-care (01) ==
LOC: M OPP 09:27
PROVIDERS: ATTEND Surgery
DX: Z12.11 Encounter for screening for malignant neoplasm of colon (principal); Z80.0 Family history of malignant neoplasm of digestive organs; D12.6 Benign neoplasm of colon, unspecified; Z87.891 Personal history of nicotine dependence; Z79.899 Other long term (current) drug therapy

== ENCOUNTER → 2024-05-02 | Outpatient (CLI) | payer BC | LOC: M PLAIMG 10:55 | PROVIDERS: ATTEND Nurse Practitioner Family | DX: M17.11 Unilateral primary osteoarthritis, right knee (principal); M25.461 Effusion, right knee ==

== ENCOUNTER 2024-07-21 08:02 | Emergency (ER) | payer BC ==
[~2024-07-21] VITALS: Ht 154.9 cm; Wt 109.1 kg
[2024-07-21 11:00] LABS: KETONE, URINE AUTO RFX NEGATIVE (NEGATIVE); LEUKOCYTE ESTERASE UR AUTO RFX NEGATIVE (NEGATIVE); MUCUS, URINE RFX SMALL (NEGATIVE); NITRITE, URINE AUTO RFX NEGATIVE (NEGATIVE); RBC, URINE AUTO RFX 1 /HPF (0-3); SQUAM EPITHELIAL CELL UR AURFX 1 /HPF (0-6)
[2024-07-21 11:14] LABS: BASO % 0.4 % (0.0-1.0); EOS # 0.1 10^3/uL (0.0-0.5); EOS % 0.7 % (0.0-3.0); HEMOGLOBIN 12.8 g/dl (12.0-15.5); LYMPH # 1.6 10^3/uL (1.5-5.0); LYMPH % 14.2 % (24.0-44.0); MEAN CORPUSCULAR HEMOGLOBIN 29.1 pg (27.0-33.0); MEAN CORPUSCULAR HGB CONC 32.8 g/dl (32.0-36.5); MEAN CORPUSCULAR VOLUME 88.6 fl (80.0-96.0); MONO # 0.4 10^3/uL (0.0-0.8); MONO % 3.5 % (2.0-8.0); NEUTROPHILS # 8.8 10^3/uL (1.5-8.5); NEUTROPHILS % 80.7 % (36.0-66.0); PLATELET COUNT, AUTOMATED 331 10^3/uL (150-450); WHITE BLOOD COUNT 10.9 10^3/uL (4.0-10.0)
[2024-07-21 11:26] LABS: AMPHETAMINES LEVEL URINE NEGATIVE (NEGATIVE); BARBITURATES URINE NEGATIVE (NEGATIVE); BENZODIAZEPINES URINE NEGATIVE (NEGATIVE); CANNABINOIDS URINE NEGATIVE (NEGATIVE); COCAINE METABOLITE URINE NEGATIVE (NEGATIVE); METHADONE URINE NEGATIVE (NEGATIVE); OPIATES URINE NEGATIVE (NEGATIVE); PHENCYCLIDINE URINE NEGATIVE (NEGATIVE)
[2024-07-21 11:29] LABS: ETHYL ALCOHOL (ETHANOL) 0.005 % (0.000-0.010)
[2024-07-21 11:30] LABS: ALBUMIN 3.8 G/DL (3.2-5.2); ALKALINE PHOSPHATASE 83 U/L (35-104); ALT/SGPT 22 U/L (7.0-40); AST/SGOT 17 U/L (<34); BILIRUBIN,DIRECT 0.1 MG/DL (<0.4); BILIRUBIN,TOTAL 0.5 MG/DL (0.3-1.2); BLOOD UREA NITROGEN 10 MG/DL (9-23); CALCIUM LEVEL 9.5 MG/DL (8.5-10.1); CARBON DIOXIDE LEVEL 24 MMOL/L (20-31); CHLORIDE LEVEL 107 MMOL/L (98-107); CREATININE FOR GFR 0.49 MG/DL (0.55-1.30); GLOMERULAR FILTRATION RATE > 60.0 (>58); GLUCOSE, FASTING 119 MG/DL (60-100); POTASSIUM SERUM 4.1 MMOL/L (3.5-5.1); SALICYLATE LEVEL < 3.0 MG/DL (<30); SODIUM LEVEL 140 MMOL/L (136-145); TOTAL PROTEIN 7.5 G/DL (5.7-8.2)
[2024-07-21] MEDS: MECLIZINE 25 MG TABLET PO ONE (11:32)
[2024-07-21] MEDS: ONDANSETRON 4MG ORAL DISINTEGRATING TAB PO ONE (11:32)
[2024-07-21 11:33] LABS: THYROID STIMULATING HORMONE 0.516 uIU/ML (0.55-4.78)
[2024-07-21 12:12] VITALS: BP 169/98; TEMP 97.9; O2SAT 100
[2024-07-21] MEDS ORDERED: MECL-209 PO (12:46)
[2024-07-21] MEDS ORDERED: ONDA-282 PO (12:46)
[2024-07-21 13:13] LABS: FREE T4 1.02 NG/DL (0.89-1.76)
== END 2024-07-21 12:54 | disposition home or self-care (01) ==
LOC: M ED 08:02 → EDBD 08:02 → M ED 12:54
DX: H81.11 Benign paroxysmal vertigo, right ear (principal); H65.01 Acute serous otitis media, right ear; Z79.2 Long term (current) use of antibiotics; Z79.83 Long term (current) use of bisphosphonates; Z79.899 Other long term (current) drug therapy

== ENCOUNTER → 2025-03-17 | Outpatient (CLI) | payer BC ==
[~2025-03-17] MED LIST changes: +MECL-209 PO; +ONDA-282 PO
[2025-03-17 15:10] LABS: PLATELET COUNT, AUTOMATED 309 10^3/uL (150-450)
[2025-03-17 15:18] LABS: ALT/SGPT 18 U/L (7.0-40); AST/SGOT 21 U/L (<34); CALCIUM LEVEL 9.4 MG/DL (8.5-10.1); CARBON DIOXIDE LEVEL 26 MMOL/L (20-31); CHLORIDE LEVEL 106 MMOL/L (98-107); CREATININE FOR GFR 0.62 MG/DL (0.55-1.30); GLOMERULAR FILTRATION RATE > 90.0 (>58); POTASSIUM SERUM 4.8 MMOL/L (3.5-5.1); SODIUM LEVEL 141 MMOL/L (136-145)
[2025-03-17 15:21] LABS: FREE T4 1.07 NG/DL (0.89-1.76)
[2025-03-17 17:11] LABS: ESTIMATED AVERAGE GLUCOSE 123.0 MG/DL (60-110)
== END ==
LOC: M PLALAB 10:23
PROVIDERS: ATTEND Obstetrics & Gynecology
DX: N93.9 Abnormal uterine and vaginal bleeding, unspecified (principal)

== ENCOUNTER → 2025-04-13 | Outpatient (REF) | payer BC | LOC: M PLALAB 14:45 | PROVIDERS: ATTEND Obstetrics & Gynecology | DX: Z32.02 Encounter for pregnancy test, result negative (principal) ==